=== PATIENT | female | born 1970 | race African-American/Black ===

== ENCOUNTER 2016-10-03 13:35 | Emergency (ER) | payer OTHER ==
[~2016-10-03] VITALS: Ht 175.3 cm; Wt 117.5 kg
--- NOTE | ~2016-10-03 | CR181 ---
[facility] RADIOLOGY TEXT RESULTS PATIENT: SHANI JAIME LOCATION: [facility] : 66 UNIT #: [id number] AGE: [address]: YO DWYER SEX: F ORDER DR: [id number] [facility] [address] [facility]. [place], [place] [address] [id number] E MR#: [id number] Acc #: [id number] NAME: SHANI JAIME : 1970 SEX: F STUDY DATE/TIME: 10/03/2016 15:07 UNIT: [facility] ROOM: STUDY DESCRIPTION: CR Lumbar Spine 2 or 3 Views Attending Physician: Yo Dwyer A.P.R.N. Ordering Physician: Yo Dwyer A.P.R.N. Primary Care Physician: [facility] MEDICAL IMAGING REPORT This report is preliminary unless electronic signature is present EXAM Lumbar spine plain films HISTORY Radiculopathy. Low back pain which radiates down both legs bilateral starting this morning when the patient rolled out of bed. COMMENT AP lateral lumbosacral views lumbar spine reviewed. No comparison. Mild chronic anterior wedging at L1 and T12 with multilevel mild anterior plate spondylosis. Likely mild loss of intervertebral disc height at L5-S1 and there is lower lumbar facet arthritis most prominent at L5-S1. No acute fracture or destruction. IMPRESSION 1. No acute fracture or traumatic malalignment. 2. Plain film evidence for lumbar degenerative disease. If symptoms persist and more information is needed the patient is best assessed further with MRI if a candidate. Dictated by... Barb Kahn M.D. THIS IS AN ELECTRONICALLY VERIFIED REPORT Barb Kahn M.D. at 10/04/2016 2:09 PM ROBERTH/chinmay TD: 10/03/2016 23:29 JOB #: [id number] MEDICAL IMAGING REPORT [facility] RADIOLOGY TEXT RESULTS PATIENT: SHANI JAIME LOCATION: [facility] : 66 UNIT #: [id number] AGE: [address]: YO DWYER SEX: F ORDER DR: Page 1 of 1 COPY
== END 2016-10-03 16:02 | disposition home or self-care (01) ==
LOC: CFTX 13:35 → CED 13:35 → CFTX 14:29
DX: M54.42 Lumbago with sciatica, left side (principal); I10 Essential (primary) hypertension; Z90.710 Acquired absence of both cervix and uterus
CPT/HCPCS: 72100; 96372; 99283; J1885